=== PATIENT | male | born 1955 | race Caucasian/White ===

== ENCOUNTER → 2016-07-29 | Outpatient (CLI) | payer BC ==
[~2016-07-29] MED LIST: FEXO1TAB49 PO; OXYC1TAB3 PO; PHEN-876 PO; POTA1080 PO; SAW450CA5 PO; [UNRECOGNIZED DRUG - CODE] PO
[2016-07-29 10:30] LABS: ESTIMATED AVERAGE GLUCOSE 128 mg/dl; HA1C FLAG Normal (Normal)
== END | disposition home or self-care (01) ==
LOC: C.LAB 09:04
PROVIDERS: ATTEND Nurse Practitioner Adult Health
DX: R17 Unspecified jaundice (principal); E11.8 Type 2 diabetes mellitus with unspecified complications